=== PATIENT | female | born 1945 | race Caucasian/White ===

== ENCOUNTER 2023-12-30 14:17 | Outpatient (CLI) | payer MEDICARE, MEDICAID | END 2023-12-30 23:59 | disposition home or self-care (01) | LOC: RT 14:17 | PROVIDERS: ATTEND Student in an Organized Health Care Education/Training Program | DX: J45.909 Unspecified asthma, uncomplicated (principal) | CPT/HCPCS: 94010; 94760 ==

== ENCOUNTER 2024-08-09 16:15 | Emergency (ER) | payer MEDICARE, MEDICAID ==
[~2024-08-09] VITALS: Ht 160 cm; Wt 57.6 kg
--- NOTE | 2024-08-09 16:45 | RADIOLOGY REPORT ---
CHEST RADIOGRAPH Indication: FALL/CP Technique: Single frontal view of the chest was obtained COMPARISON: None FINDINGS: Lines and Tubes: None Lungs: Clear Pleura: No effusion. No pneumothorax. Cardiomediastinal contours: Unremarkable Bones: Unremarkable IMPRESSION: 1. No acute disease.
--- NOTE | 2024-08-09 20:22 | Physician Documentation ---
History of Present Illness ~ Chief Complaint: Mechanical Fall Stated Complaint: FALL RIB PAIN NO THINNERS Time Seen by MD: 20:13 HPI Patient presents to the emergency room with sternal chest pain that began as she woke up earlier this morning from what she describes as a vivid dream and landing on the corner of her dresser right in her chest. She denies any head strike. She also bumped her left forearm and has some bruising there but full range of motion. She has taken nothing for the pain Tetanus within 5 Years?: Yes Medication Reconciliation Allergies: Coded Allergies: No Known Allergies (Unverified , 08/09/24) Review of Systems ROS All review of systems negative except as per HPI Physical Exam Vital Signs: Temperature: 99.0, Source: Temporal, Heart Rate: 78, Respiratory Rate: 16, BP: 181/78, Pulse Oximetry: 99, Weight: 57.600 Oxygen Flow Rate: 0 Physical Exam General: Patient is awake, alert, oriented x4 in no acute distress Head: Normocephalic and atraumatic. Eyes: Conjunctival normal. EOMI. PERRL. ENT: Mucous membranes moist. Neck: Supple, trachea is midline. Chest: Clear to auscultation bilaterally without rales, rhonchi, or wheezes. There is no accessory muscle use or retractions. Tenderness to palpation to central chest but no ecchymosis or breaks in skin Cardiac: RRR without murmurs, gallops, or rubs. Abd: Soft, nondistended, nontender, with normoactive bowel sounds. No guarding, rebound, or rigidity. Progress Results/Orders Results/Orders Completed Orders - RUSSELL RAMIREZ MD Electrocardiogram (08/09/24 20:27) Ibuprofen Tablet (Motrin Tablet) (08/09/24 20:30) Acetaminophen 325mg Tablet (Tylenol Tabl (08/09/24 20:30) Medications Received in ER Medications (Trade) Dose Ordered Sig/Kaia Route PRN Reason Start Time Stop Time Status Last Admin Dose Admin (Motrin tablet) 400 mg ONCE ONCE PO 08/09/24 20:30 08/09/24 20:31 DC 08/09/24 20:37 400 MG (Tylenol tablet) 650 mg ONCE ONCE PO 08/09/24 20:30 08/09/24 20:31 DC 08/09/24 20:36 650 MG Vital Signs 08/09/24 08/09/24 08/09/24 16:18 18:50 19:40 Temp 99.0 Pulse 105 78 Resp 17 16 B/P (MAP) 184/93 181/78 (112) Pulse Ox 99 99 O2 Flow Rate 0 EKG/XRAY/CT/US/VASC/MRI EKG : Additional Comment EKG interpreted by myself shows time of 2036, rate 77, sinus rhythm, normal axis, no ST changes Chest X-Ray : Additional Comments Exam: CHEST,SINGLE VIEW CHEST RADIOGRAPH Indication: FALL/CP Technique: Single frontal view of the chest was obtained COMPARISON: None FINDINGS: Lines and Tubes: None Lungs: Clear Pleura: No effusion. No pneumothorax. Cardiomediastinal contours: Unremarkable Bones: Unremarkable IMPRESSION: 1. No acute disease. Medical Decision Making Findings Patient presented to the emergency room with chest pain as per HPI. Differentials include but are not limited to ACS, musculoskeletal system, sternal fracture, pneumothorax. Chest x-ray is reassuring as his physical exam. Patient's pain significantly improved with ibuprofen and Tylenol. He had not feel she requires a CT scan. EKGs reassuring he had not feel her reproducible chest pain is due to acute coronary syndrome. Departure Disposition: 01 HOME / SELF CARE / HOMELESS Impression: Primary Impression: Superficial bruising Condition: Stable Discharge Instructions: Fall Prevention in the Home, Adult, [id number] Referrals: NO PRIMARY CARE PROVIDER (PCP) Signature Scribe Signature: No scribe Attestation: The note accurately reflects work and decisions made by me.Russell Ramirez MD 08/09/24 21:18 RUSSELL RAMIREZ MD Aug 09, 2024 20:22
[2024-08-09] MEDS: acetaminophen 325mg tablet PO ONE (20:36)
[2024-08-09] MEDS: ibuprofen tablet 400 MG TABLET PO ONE (20:37)
--- NOTE | 2024-08-09 20:40 | ELECTROCARDIOGRAPH REPORT ---
[facility] Test Date: 2024-08-09 Test Time: 20:37:23 Pat Name: KILO MOSHERDepartment: [facility] Room: Gender: F Court Specialist: : 1945 Requested By: ALFA COCHRAN Order Number: [id number] Reading MD: Dr. Hero Zacarias Measurements Intervals [place] Rate: 77 P: 68 NV: 212 QRS: 38 QRSD: 96 T: 37 QT: 392 QTc: 444 Interpretive Statements Sinus rhythm Atrial premature complex Borderline prolonged NV interval Electronically Signed On 08-11-2024 6:35:[address] Hero Zacarias Please click the below link to view image of tracing.
[2024-08-09 21:43] VITALS: BP 151/74; PULSE 72; RESP 16; TEMP 98.6; O2SAT 99
== END 2024-08-09 21:45 | disposition home or self-care (01) ==
LOC: ER 16:16
DX: S50.12XA Contusion of left forearm, initial encounter (principal); R07.2 Precordial pain; X58.XXXA Exposure to other specified factors, initial encounter; Y93.89 Activity, other specified; Y92.89 Other specified places as the place of occurrence of the external cause; Y99.8 Other external cause status
CPT/HCPCS: 71045; 93005; 99283

== ENCOUNTER 2024-08-29 19:00 | Emergency (ER) | payer MEDICARE, MEDICAID ==
[~2024-08-29] VITALS: Ht 162.6 cm; Wt 59.1 kg
--- NOTE | 2024-08-29 19:27 | Physician Documentation ---
History of Present Illness ~ Chief Complaint: Anxiety Stated Complaint: GENERAL ILLNESS Time Seen by MD: 19:25 HPI Patient presents to the emergency room with chief complaint of shortness of breaths tingling in fingers and some degree of numbness down her right arm which progressed to her whole-body. Patient states symptoms began this morning when she was making coffee. She has been drank much water felt better and then it returned this evening therefore she came in to be evaluated. No prior instances. No new medications. She states she takes no medications and has no official diagnosis of blood pressure cholesterol or diabetes. She does endorse having a stress test a proximally five years ago which was positive that has followed up with an angiogram which was negative for coronary artery disease. Medication Reconciliation Allergies: Coded Allergies: No Known Allergies (Unverified , 08/29/24) Review of Systems ROS All review of systems negative except as per HPI Physical Exam Vital Signs: Temperature: 98.1, Source: Oral, Heart Rate: 78, Respiratory Rate: 12, BP: 168/98, Pulse Oximetry: 97, Weight: 59.090 Oxygen Flow Rate: 0 General Appearance General: Patient is awake, alert, oriented x4 in no acute distress. Anxious Head: Normocephalic and atraumatic. Eyes: Conjunctival normal. EOMI. PERRL. ENT: Mucous membranes moist. Neck: Supple, trachea is midline. Chest: Clear to auscultation bilaterally without rales, rhonchi, or wheezes. There is no accessory muscle use or retractions. Cardiac: RRR without murmurs, gallops, or rubs. Extremities: Normal strength. Normal range of motion. No deformities or edema. No calf tenderness to palpation Progress Results/Orders Results/Orders Orders - RUSSELL RAMIREZ MD Electrocardiogram (08/29/24 ) Chest,Single View (08/29/24 19:45) Completed Orders - RUSSELL RAMIREZ MD Cbc/Diff (08/29/24 19:32) MG (08/29/24 19:32) Chest,Single View (08/29/24 19:45) BMP (08/29/24 19:32) Urinalysis (08/29/24 19:32) Hs Troponin I W Calculations (08/29/24 19:32) D-Dimer (08/29/24 19:32) TSH (08/29/24 19:36) Vital Signs 08/29/24 08/29/24 19:07 21:04 Temp 98.1 98.1 Pulse 78 80 Resp 12 16 B/P (MAP) 168/98 146/72 (96) Pulse Ox 97 98 O2 Flow Rate 0 0 Laboratory Tests Test 08/29/24 19:42 08/29/24 21:04 White Blood Count 5.6 Red Blood Count 3.98 L Hemoglobin 11.9 L Hematocrit 35.5 Mean Corpuscular Volume 89.3 Mean Corpuscular Hemoglobin 29.8 Mean Corpuscular Hemoglobin Concent 33.4 Red Cell Distribution Width 14.0 Platelet Count 198 Mean Platelet Volume 6.9 L Neutrophils (%) (Auto) 68.2 Lymphocytes (%) (Auto) 20.8 L Monocytes (%) (Auto) 7.2 Eosinophils (%) (Auto) 2.7 Basophils (%) (Auto) 1.1 H Neutrophils # (Auto) 3.8 Lymphocytes # (Auto) 1.2 Monocytes # (Auto) 0.4 Eosinophils # (Auto) 0.1 Basophils # (Auto) 0.1 CBC Comment D-Dimer 0.39 D-Dimer Comment Sodium Level 129 L Potassium Level 4.1 Chloride Level 97 L Carbon Dioxide Level 24.5 Anion Gap 8 Blood Urea Nitrogen 11 Creatinine 0.77 Estimated GFR/1.73 m2 73 BUN/Creatinine Ratio 14.3 Glucose Level 97 Calcium Level 8.7 Magnesium Level 2.0 Troponin I High Sensitivity 10 Albumin 3.7 Thyroid Stimulating Hormone (TSH) 3.05 Chemistry Comments Urine Specimen Description Cln catch midstream Urine Color Yellow Urine Clarity Clear Urine pH 6.0 Urine Specific [place] <=1.005 Urine Protein Negative Urine Glucose (UA) Negative Urine Ketones Trace H Urine Occult Blood Negative Urine Nitrite Negative Urine Bilirubin Negative Urine Urobilinogen 0.2 Urine Leukocyte Esterase Negative Volume Urine Centrifuged 10 ml Urine Comment EKG/XRAY/CT/US/VASC/MRI EKG : Additional Comment EKG interpreted by myself shows time of 191, rate 74, sinus rhythm, normal axis, no ST changes Medical Decision Making Findings Patient presents to the emergency room with subjective shortness of breath and tingling of hands as per HPI. Differentials include but are not limited to panic attack, cardiac arrhythmia, ACS therefore emergent labs ordered. Labs re assuring with negative troponin. No actual chest pain and patient has a heart score of two given her age. Lack of risk factors and patient had a negative angiogram five years ago. Offered admission however patient would prefer to leave. 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 ER precautions discussed. As symptoms have resolved he had not feel she requires investigation into possible pulmonary embolism. Possibility of intermittent arrhythmia however EKG here in troponin is reassuring. I do not feel she requires a 2nd troponin given time of onset. Departure Disposition: HOME / SELF CARE / HOMELESS Impression: Primary Impression: Dyspnea Condition: Improved Discharge Instructions: Shortness of Breath, Adult Additional Instructions: Call your doctor in the morning to arrange for follow up. Return for new or worsening of symptoms Referrals: NO PRIMARY CARE PROVIDER (PCP) Signature Scribe Signature: No scribe Attestation: The note accurately reflects work and decisions made by me.Russell Ramirez MD 08/29/24 22:25 RUSSELL RAMIREZ MD Aug 29, 2024 19:27
[2024-08-29 19:55] LABS: BASOPHILS # (AUTO) 0.1 X10'3 (0-0.2); BASOPHILS % (AUTO) 1.1 % (0-1); EOSINOPHILS # (AUTO) 0.1 X10'3 (0-0.9); EOSINOPHILS % (AUTO) 2.7 % (0-6); HEMATOCRIT 35.5 % (35.0-45.0); HEMOGLOBIN 11.9 g/dl (12.0-16.0); LYMPHOCYTES # (AUTO) 1.2 X10'3 (1.1-4.8); LYMPHOCYTES % (AUTO) 20.8 % (21-51); MEAN CORPUSCULAR HEMOGLOBIN 29.8 PG (27.0-31.0); MEAN CORPUSCULAR HGB CONC 33.4 g/dL (33.0-36.5); MEAN CORPUSCULAR VOLUME 89.3 FL (78-98); MEAN PLATELET VOLUME 6.9 FL (7.4-10.4); MONOCYTES # (AUTO) 0.4 X10'3 (0-0.9); MONOCYTES % (AUTO) 7.2 % (2-12); NEUTROPHILS # (AUTO) 3.8 X10'3 (1.8-7.7); NEUTROPHILS % (AUTO) 68.2 % (42-75); PLATELET COUNT 198 X10'3 (140-440); RED BLOOD COUNT 3.98 X10'6 (4.20-5.60); WHITE BLOOD COUNT 5.6 X10'3 (4.5-11.0)
[2024-08-29 20:10] LABS: D-DIMER 0.39 MG/L FEU (0-0.50)
--- NOTE | 2024-08-29 20:22 | RADIOLOGY REPORT ---
CHEST RADIOGRAPH Indication: CP Technique: Single frontal view of the chest was obtained Comparison: DI CHEST,SINGLE VIEW on DOS: 08/09/24 FINDINGS: Lines and Tubes: None Lungs: No focal consolidation. Pleura: No effusion. No pneumothorax. Cardiomediastinal contours: Unremarkable Bones: No acute osseous abnormality. IMPRESSION: No acute cardiopulmonary disease.
[2024-08-29 20:23] LABS: ALBUMIN 3.7 G/DL (3.4-5.0); ANION GAP 8 (8-16); BLOOD UREA NITROGEN 11 MG/DL (7-18); BUN/CREATININE RATIO 14.3 (10.0-20.0); CALCIUM 8.7 MG/DL (8.5-10.1); CHLORIDE 97 MMOL/L (99-107); CREATININE 0.77 MG/DL (0.40-0.90); GLUCOSE 97 MG/DL (70-104); POTASSIUM 4.1 MMOL/L (3.5-5.1); SODIUM 129 MMOL/L (135-145); THYROID STIMULATING HORMONE 3.05 ulU/ml (0.34-4.50); TOTAL CARBON DIOXIDE 24.5 MMOL/L (24-32); eCRCL 52 ML/MIN; eGFR 73 ML/MIN
[2024-08-29 21:04] VITALS: BP 146/72; PULSE 80; RESP 16; O2SAT 98
[2024-08-29 21:23] LABS: BILIRUBIN,URINE NEGATIVE (Neg); CLARITY,URINE CLEAR (Clear); COLOR,URINE YELLOW (Yellow); GLUCOSE, URINE NEGATIVE (Neg); KETONES,URINE TRACE mg/dl (Neg); LEUKOCYTE ESTERASE ,URINE NEGATIVE (Neg); NITRITES, URINE NEGATIVE (Neg); OCCULT BLOOD,URINE NEGATIVE (Neg); PROTEIN,URINE NEGATIVE (Neg); UROBILINOGEN,URINE 0.2 E.U/dL (0.2-1.0)
[2024-08-29 21:24] LABS: UA COLLECTION TYPE CLN CATCH MIDSTREAM
[2024-08-29 22:35] VITALS: TEMP 98.1
--- NOTE | 2024-08-30 05:15 | ELECTROCARDIOGRAPH REPORT ---
[facility] Test Date: 2024-08-29 Test Time: 19:15:09 Pat Name: KILO MOSHERDepartment: EMERGENCY ROOM Room: Gender: F Center Director: ISIAH : 1945 Requested By: ALFA COCHRAN Order Number: [id number] Reading MD: Measurements Intervals [place] Rate: 74 P: 73 [place]: 203 QRS: 61 QRSD: 101 T: 65 QT: 406 QTc: 451 Interpretive Statements Sinus rhythm Multiple premature complexes, vent & supraven Minimal ST depression, lateral leads Please click the below link to view image of tracing.
== END 2024-08-29 22:37 | disposition home or self-care (01) ==
LOC: ER 19:01
DX: R06.02 Shortness of breath (principal)
CPT/HCPCS: 36415; 71045; 80048; 81003; 83735; 84443; 84484; 85025; 85379; 93005; 99285

== ENCOUNTER 2024-12-13 15:41 | Emergency (ER) | payer MEDICARE, MEDICAID ==
[~2024-12-13] VITALS: Ht 160 cm; Wt 50.9 kg
[~2024-12-13 15:41] MED LIST: ALPR0.252 PO; ATOR20TA66 PO; NO HOME MEDS
[2024-12-13 15:53] VITALS: TEMP 97.1
--- NOTE | 2024-12-13 16:24 | Physician Documentation ---
History of Present Illness ~ Chief Complaint: Anxiety Stated Complaint: ANXIETY Time Seen by MD: 15:50 HPI Patient is seen today with complaints of panic attack today. Patient states she was up all night doing deep breathing exercises trying to control her anxiety but was unable to. She has had severe anxiety over the last 2-4 months and has gotten a prescription of Xanax 0.25 mg 1/2-1 tablet by mouth as needed for anxiety that has lasted for the last couple of months. Patient unfortunately has not yet followed up with her primary care provider. Patient has no other concern or complaint at this time. Patient denies any suicidal or homicidal ideation. Medication Reconciliation Allergies: Coded Allergies: No Known Allergies (Unverified , 10/24/24) Scheduled Atorvastatin Calcium (Atorvastatin Calcium), 80 MG PO DAILY Scheduled PRN Alprazolam (Xanax), 1 TAB PO QDAY PRN PRN for anxiety Miscellaneous Medications Home Med List (No Home Medications), (Reported) Past Medical History Patient History: FH: Parkinson's disease (brother parkinson) FH: atrial fibrillation (brother Atrial fibrillation) FH: cancer (mom has intenstinal cancer) Heart valve abnormality (father had heart valve replacement) Review of Systems Constitutional: Denies: chills, fever, weakness Eyes: Denies: pain, blurred vision ENT: Denies: ear pain, nose pain, throat pain, mouth pain Respiratory: Denies: cough, shortness of breath Cardiovascular: Denies: chest pain, palpitations Gastrointestinal: Denies: abdominal pain, nausea, vomiting Genitourinary: Denies: burning, dysuria Female Genitalia: Denies: vaginal discharge, pelvic pain Neurological: Denies: headache, dizziness Musculoskeletal: Denies: pain, swelling Integumentary: Denies: rash, lesions Allergic/Immunologic: Denies: hives, itching Hematologic/Lymphatic: Denies: no symptoms reported Psychiatric: Denies: depression, anxiety Physical Exam Vital Signs: Temperature: 97.1, Source: Temporal, Heart Rate: 87, Respiratory Rate: 14, BP: 163/73, Pulse Oximetry: 96, Weight: 50.910 Oxygen Flow Rate: 0 Physical Exam General: Awake and Alert, no acute distress. Patient appears extremely anxious. But is able to calm down and speak understandably. HEENT: Conjunctiva pink, Sclera clear, Mucus Membranes moist. Neck: Supple without masses and tenderness. Resp: Unlabored. Lungs clear to auscultation bilaterally. Heart: Regular Rate and rhythm, normal S1 and S2 without murmur, rub or gallop. Abdomen: Soft and non tender no organomegaly Extremities: No cyanosis,clubbing or edema. Skin: Warm and Dry. Progress Results/Orders Results/Orders Completed Orders - DANISH HINTON Alprazolam Tablet (Xanax Tablet) (12/13/24 15:52) Vital Signs 12/13/24 15:53 Temp 97.1 Pulse 87 Resp 14 B/P (MAP) 163/73 Pulse Ox 96 O2 Flow Rate 0 Medical Decision Making Findings Patient is seen today with complaints of panic attack today. Patient states she was up all night doing deep breathing exercises trying to control her anxiety but was unable to. She has had severe anxiety over the last 2-4 months and has gotten a prescription of Xanax 0.25 mg 1/2-1 tablet by mouth as needed for anxiety that has lasted for the last couple of months. Patient unfortunately has not yet followed up with her primary care provider. Patient has no other concern or complaint at this time. Patient was given 0.25 mg Xanax tablet by mouth in the ED today along with prescription for Xanax sent home to patient's pharmacy to be taken as prescribed. I highly advised patient establish care with primary care for further eval and follow up and eval by Psychiatry. Patient will return to ED with any worsening, concerning or changing symptoms. Departure Disposition: 01 HOME / SELF CARE / HOMELESS Impression: Primary Impression: Anxiety attack Additional Impression: Panic attack Condition: Improved Discharge Instructions: Panic Attack Additional Instructions: Patient was given 0.25 mg Xanax tablet by mouth in the ED today along with prescription for Xanax sent home to patient's pharmacy to be taken as prescribed. I highly advised patient establish care with primary care for further eval and follow up and eval by Psychiatry. Patient will return to ED with any worsening, concerning or changing symptoms. Referrals: NO PRIMARY CARE PROVIDER (PCP) Prescriptions Alprazolam (Xanax) 0.25 Mg Tablet 1 TAB PO Q12H PRN PRN for anxiety for 7 Days, #14 TAB 0 Refills Prov: DANISH HINTON 12/13/24 Signature Scribe Signature: No scribe Attestation: No scribe HINTON,DANISH R [facility] Dec 13, 2024 16:24
[2024-12-13] MEDS ORDERED: ALPR0.252 PO (16:26)
[2024-12-13] MEDS: ALPRAZolam 0.25mg tablet PO STA (16:50)
[2024-12-13 16:59] VITALS: BP 141/90; PULSE 85; RESP 16; O2SAT 98
== END 2024-12-13 17:01 | disposition home or self-care (01) ==
LOC: ER 15:41
DX: F41.0 Panic disorder [episodic paroxysmal anxiety] (principal); Z79.899 Other long term (current) drug therapy
CPT/HCPCS: 99283

== ENCOUNTER 2025-01-06 08:53 | Emergency (ER) | payer MEDICARE, MEDICAID ==
[~2025-01-06] VITALS: Ht 160 cm; Wt 51.5 kg
[2025-01-06 08:56] VITALS: TEMP 96.5
--- NOTE | 2025-01-06 09:21 | Physician Documentation ---
History of Present Illness ~ Chief Complaint: Anxiety Stated Complaint: ANXIETY Time Seen by MD: 09:03 Source: patient Mode of Arrival: EMS Exam Limitations: no limitations HPI 79-year-old female suffering from anxiety and panic attack this morning feeling like she could not breathe so she arrived via EMS vital signs stable. Patient was seen last night and given Ativan. Patient took Ativan prior to going to bed last night as well as a 50 mg dose of hydroxyzine. Patient woke up feeling panicked and unable to take a deep breath. Patient does have her next primary care appointment on January 18, 2025 she currently has also started taking Lexapro daily. Patient states she has never truly suffered from anxiety except for the last 3 months but is unaware of any triggering events to cause severe anxiety. Medication Reconciliation Allergies: Coded Allergies: No Known Allergies (Unverified , 01/06/25) Scheduled Atorvastatin Calcium (Atorvastatin Calcium), 80 MG PO DAILY Scheduled PRN Alprazolam (Xanax), 1 TAB PO QDAY PRN PRN for anxiety Alprazolam (Xanax), 1 TAB PO Q12H PRN PRN for anxiety Miscellaneous Medications Home Med List (No Home Medications), (Reported) Past Medical History Past Medical History: *PSYCH*, Anxiety Past Surgical History: noncontributory Patient History: FH: Parkinson's disease (brother parkinson) FH: atrial fibrillation (brother Atrial fibrillation) FH: cancer (mom has intenstinal cancer) Heart valve abnormality (father had heart valve replacement) Drug Use: none Lives In: Home Occupation: retired Review of Systems All Other Systems at this time: Reviewed and Negative Psychiatric: Reports: see HPI Physical Exam Vital Signs: RN Vital Signs have been reviewed: Yes, Temperature: 96.5, Source: Oral, Heart Rate: 90, Respiratory Rate: 16, BP: 159/81, Pulse Oximetry: 99, Weight: 51.500 Oxygen Flow Rate: 0 Physical Exam General: Alert, anxious mildly in distress due to anxiety HEENT: PERRL, EOMI, no injection, moist mucous membranes. Neck: Full range of motion. Respiratory: Lungs clear, no respiratory distress. Chest: No accessory muscle use. Cardiovascular: Regular rate and rhythm, no murmurs. Extremities: Normal range of motion, no deformity. Neurologic: Oriented x4. Psychiatric: Anxious Skin: Normal color, warm and dry. No edema, no ecchymosis. Progress Results/Orders Results/Orders Completed Orders - JENNIFER HO NP Alprazolam Tablet (Xanax Tablet) (01/06/25 09:20) Medications Received in ER Medications (Trade) Dose Ordered Sig/Kaia Route PRN Reason Start Time Stop Time Status Last Admin Dose Admin (Xanax tablet) 0.5 mg ONCE ONCE PO 01/06/25 09:20 01/06/25 09:21 DC 01/06/25 09:40 0.5 MG Vital Signs 01/06/25 01/06/25 08:56 09:09 Temp 96.5 Pulse 82 90 Resp 16 16 B/P (MAP) 173/65 159/81 (107) Pulse Ox 99 99 O2 Flow Rate 0 0 Medical Decision Making Additional information obtaine: old records Findings Patient has known history of anxiety panic attacks just recently started on Lexapro and does have primary care involvement. Patient was seen last night old records reviewed. Patient took Ativan last night and currently has prescription of Xanax. Patient is unaware if this is just a another panic attack or if it was from Ativan. His Xanax was prescribed here no medications were prescribed upon discharge. Patient is to maintain appointments with primary care. Suicidal homicidal ideations Differential Dx:Considerations: Include: Anxiety Departure Time of Disposition: 09:54 Disposition: 01 HOME / SELF CARE / HOMELESS Impression: Primary Impression: Panic attack Additional Impression: Anxiety Condition: Stable Discharge Instructions: Panic Attack Additional Instructions: Call and see if you are able to make a sooner primary care provider appointment and maintain your current appointment on the 12th. Take current medications as you have done well with Xanax and hydroxyzine in rest and stay well hydrated Referrals: NO PRIMARY CARE PROVIDER (PCP) Education Educated: Patient Educated regarding: diagnosis, treatment, need for follow up Signature Scribe Signature: No scribe Attestation: The note accurately reflects work and decisions made by me.Jennifer Ho - TUBE CUTTER OPERATOR 01/06/25 09:21 JENNIFER HO NP Jan 06, 2025 09:21
[2025-01-06] MEDS: ALPRAZolam 0.25mg tablet PO ONE (09:40)
[2025-01-06 10:02] VITALS: BP 155/74; PULSE 72; RESP 16; O2SAT 98
== END 2025-01-06 10:00 | disposition home or self-care (01) ==
LOC: ER 08:54
DX: F41.0 Panic disorder [episodic paroxysmal anxiety] (principal); Z79.899 Other long term (current) drug therapy
CPT/HCPCS: 99283

== ENCOUNTER 2025-01-12 07:50 | Inpatient (IN) | payer MEDICARE, MEDICAID ==
[~2025-01-12] VITALS: Ht 162.6 cm; Wt 50.0 kg
--- NOTE | 2025-01-12 08:30 | Physician Documentation ---
Addendum CHIEF COMPLAINT/HPI: The patient is a 79-year-old female with a history of anxiety/depression and dyslipidemia who presents with dizziness. She reports that she was not able to walk I am called 911. She also reports that she was here last night and received Ativan, hydroxyzine and tramadol. She has been suffering from anxiety since October and has had blood work done at [facility] by her PCP, Dr. Burnham. She has associated abdominal pain. She states she was seen at [facility] for the same pain a proximally one-week ago where CT scans and ultrasounds were performed with no findings. She lives by herself in [facility] for the past two years. Prior to that she lived with her brother who has Parkinson's disease. At home, she has medications which include hydroxyzine, propranolol, Xanax, Ativan and Lexapro (she reports that she stopped taking Lexapro as it did not agree with her). REVIEW OF SYSTEMS: Constitutional: Denies chills, fatigue, fever, weight gain or weight loss. HEENT: Denies hearing loss, sinus pressure or visual changes. Respiratory: Denies cough, shortness of breath or wheezing. Cardiovascular: Denies chest pain, pain while walking (claudication), edema or palpitations. Gastrointestinal: Denies abdominal pain, blood in stool, constipation, diarrhea, heartburn, loss of appetite, nausea or vomiting. Genitourinary: Denies painful urination (dysuria), excessive amount of urine (polyuria) or urinary frequency. Metabolic/Endocrine: Denies cold intolerance, heat intolerance, excessive thirst (polydipsia) or excessive hunger (polyphagia). Neurological: Denies dizziness, extremity numbness, extremity weakness, headaches, seizures or tremors. Psychiatric: Suffers from anxiety and depression. Integumentary: Denies breast discharge, breast lump, hives, mole change(s), rash or skin lesion. Musculoskeletal: Denies back pain, joint pain, joint swelling or neck pain. Hematologic: Denies easily bleeding, easily bruises, lymphedema or issues with blood clots. Immunologic: Denies food allergies or seasonal allergies. PHYSICAL EXAMINATION: Vitals and nursing note reviewed. Constitutional: General: Patient is awake, alert, oriented x 4 in no acute distress and well appearing. Speech is clear and lucid. Appearance: Normal appearance. Patient is not ill-appearing, toxic-appearing or diaphoretic. HENT: Head: Normocephalic and atraumatic. Mouth: Mucous membranes are moist. Pharynx: Oropharynx is clear. Eyes: General: No scleral icterus. Extraocular Movements: Extraocular movements intact. Pupils: Pupils are equal, round, and reactive to light. Neck: Supple, no Kernig or Brudzinski sign. Cardiovascular: Rate and Rhythm: Normal rate and regular rhythm. Heart sounds: No murmur heard. Pulmonary: Effort: No respiratory distress. Breath sounds: No wheezing, rhonchi or rales. Abdominal: General: There is no distension. Palpations: There is no fluid wave, hepatomegaly or mass. Tenderness: There is no abdominal tenderness. There is no guarding. Musculoskeletal: General: No swelling or deformity. Skin: Coloration: Skin is not jaundiced. Findings: No erythema or rash. Neurological examination: GCS: E-4, V-5, M-6 Motor strength: [motor strength] Sensory: [sensory] information security systems instructor: II - XII intact Equilibratory intact MEDICAL DECISION MAKING: This 71-year-old female comes here lightheaded/dizzy. She does live by herself. She does take lots of sedative/hypnotics, including hydroxyzine, lorazepam, Xanax and had tramadol last night during her visit here. She is also hyponatremic. My concern is that she is high-risk for a fall. I am going to get her admitted. Departure Disposition: ADMITTED INPATIENT Admitted to Inpatient Unit: to hospitalist Impression: Primary Impression: Hyponatremia Additional Impressions: Dizzy Anxiety Risk for falls Condition: ROSENDO Aguilar MD Jan 12, 2025 08:30
[2025-01-12] MEDS: normal saline 1000ml 1,000 ML IV ONE (09:18)
[2025-01-12 09:37] LABS: MEAN PLATELET VOLUME 6.4 FL (7.4-10.4); RED CELL DISTRIBUTION WIDTH 14.3 % (11.5-14.5)
[2025-01-12 09:46] LABS: INR 1.0 INR
[2025-01-12 09:57] LABS: CREATININE 0.69 MG/DL (0.40-0.90); TOTAL CARBON DIOXIDE 26.2 MMOL/L (24-32); eCRCL 53 ML/MIN; eGFR 82 ML/MIN
--- NOTE | 2025-01-12 12:41 | RADIOLOGY REPORT ---
EXAM: CT CT HEAD INDICATION: Dizzy TECHNIQUE: CT of the head without intravenous contrast. Radiation Dose : 1. Head: CT Dose: CTDI volume is 46.0 mGy. Dose-length product is 846.1 mGy*cm The dose indicators for CT are the volume Computed Tomography (CT) Dose Index (CTDIvol) and the Dose Length Product (DLP), and are measured in units of mGy and mGy-cm, respectively. These indicators are not patient dose, but values generated from the CT scanner acquisition factors. The report includes radiation exposure data for exposures received during this examination. COMPARISON: [facility] SCAN on DOS: 10/25/24 FINDINGS: There is no evidence of acute intracranial hemorrhage, extra-axial collection, mass effect, midline shift, herniation or hydrocephalus. The ventricles, sulci and cisterns are age appropriate. The sanchez-white differentiation is intact. The visualized paranasal sinuses and mastoid air cells are clear. The surrounding soft tissues and osseous structures are unremarkable. IMPRESSION: No acute intracranial abnormality.
[2025-01-12] MEDS ORDERED: magnesium hydroxide 30ml (MOM) UD suspension PO PRN (13:05)
[2025-01-12] MEDS ORDERED: mag hydrox/Alum hydrox/simeth 30ml oral suspension PO PRN (13:05)
[2025-01-12] MEDS ORDERED: potassium Cl 40MEQ/1/2NS 520ml 520 ML IV PRN (13:05)
[2025-01-12] MEDS ORDERED: ondansetron/PF 4mg/2ml inj IV PRN (13:05)
[2025-01-12] MEDS ORDERED: potassium Cl 20 mEq SR tablet PO PRN ×2 (13:05)
[2025-01-12] MEDS ORDERED: HYDROcodone/acetaminophen 5mg/325mg tablet PO PRN (13:05)
[2025-01-12] MEDS ORDERED: HYDROcodone/acetaminophen 10/325mg tab PO PRN (13:05)
[2025-01-12] MEDS ORDERED: magnesium sulf-water 4G/100mL 100 ML IV PRN (13:05)
[2025-01-12] MEDS ORDERED: magnesium Cl slow-release 64mg tablet PO PRN (13:05)
[2025-01-12] MEDS ORDERED: magnesium sulf-water 2g/50mL 50 ML IV PRN (13:05)
[2025-01-12 14:05] LABS: APTT 28 SECONDS (22-32); INR 1.0 INR
[2025-01-12 14:09] LABS: OSMOLALITY 270 MOSM/K (280-300)
[2025-01-12 14:14] LABS: CREATININE 0.60 MG/DL (0.40-0.90); PHOSPHORUS 3.7 MG/DL (2.3-4.5); PRO BRAIN NATRIURETIC PEPTIDE 336 PG/ML (0-450); TOTAL CARBON DIOXIDE 25.1 MMOL/L (24-32); eCRCL 61 ML/MIN; eGFR > 90 ML/MIN
--- NOTE | 2025-01-12 16:56 | HISTORY AND PHYSICAL-Residence ---
History & Physical Providers to Resident Creating Document: DEMETRIO GARSIA RES ~ History of Present Illness Reason for Admit\Complaint: Dizziness History of Present Illness 79-year-old female with history of anxiety and panic attack came to the ED with complaints of dizziness. She states that today morning, she started feeling dizzy when she woke up and called 911. She denies any falls or loss of consciousness. Yesterday she came to the ED for panic attack and was given Ativan, hydroxyzine and tramadol due to associated abdominal pain. She states that she started having anxiety and panic attacks since October and has a therapist who prescribed her Xanax 0.25 mg at home. She reports having chest pain, palpitations, shortness of breath during the panic episodes. She has propranolol, Xanax, Ativan, hydroxyzine and Lexapro at home which she uses for her anxiety. She stopped taking Lexapro as she has a bad reaction, she cannot breathe and has diaphoresis after taking Lexapro. She reports having intermittent burning and cramping type of epigastric abdominal pain, especially when she eats, which started 3 months ago when she started having panic attacks. She has lost 19 lb in past 3 months, she has decreased appetite due to the pain and did not eat yesterday and today. She states that her abdominal pain subsides when she lies down and used to subside with the Xanax but not anymore. She does not take any [id number] pain meds and she does not drink alcohol. She has been taking Pepsid for the past 1- 1/2 week as per recommendation of her PCP but she states that it has not been helping her. She has been intermittently constipated. She went to [facility] 1-1/2 week ago for evaluation of abdominal pain where CT scan and ultrasound were performed with no findings. She denies melena, hematochezia, nausea, vomiting, hematemesis, burning micturition, fever, chills. Her PCP is at [facility], Dr. Burnham She sees a therapist for anxiety and panic attacks whom she will be seeing on Thursday She lives alone at home She can ambulate independently, but is a fall risk currently due to dizziness Allergies: Coded Allergies: No Known Allergies (Unverified , 01/06/25) Home Medications Home Medications Active Xanax (Alprazolam) 0.25 Mg Tablet 1 Tab PO Q12H PRN PRN 7 Days Atorvastatin Calcium 20 Mg Tablet 80 Mg PO DAILY 30 Days Xanax (Alprazolam) 0.25 Mg Tablet 1 Tab PO QDAY PRN PRN Reported No Home Medications (Home Med List) Each Past Medical History Past Medical History Anxiety Panic attacks Dyslipidemia Past Surgical History Surgical History Comment No significant surgical history Family History Family History: FH: Parkinson's disease (brother parkinson) FH: atrial fibrillation (brother Atrial fibrillation) FH: cancer (mom has intenstinal cancer) Heart valve abnormality (father had heart valve replacement) Past Social History Social History Comment She is not an active smoker, she smoked for 3 years around 61 years ago She drinks alcohol occasionally She denies recreational drug use She lives alone at home She can ambulate independently, but is a fall risk currently due to dizziness Her PCP is at [facility], Dr. Burnham She sees a therapist for anxiety and panic attacks whom she will be seeing on Thursday Drug Use: None Lives In: Home Occupation: retired ROS ROS Constitutional: Reports dizziness, No fever, chills, weight gain or loss Eyes: No pain, erythema, discharge, blurring of vision ENT: No sore throat, epistaxis, tinnitus Cardiovascular:No chest pain, palpitations, syncope, lower extremity edema, paroxysmal nocturnal dyspnea Respiratory: No Shortness of breath and cough, No hemoptysis. Gastrointestinal: Reports Abdominal pain, No vomiting,nausea,constipation,diarrhea. Normal appetite. No hematemesis or melena. Musculoskeletal: No Swelling, pain in bilateral lower legs. Integumentary: No change in skin, hair, nails. No swelling, bruising, abrasions Neurologic: No weakness,No headache, neck pain, numbness or tingling of the extremities, Psychiatric: Reports anxiety and panic attacks, No delusions, depression, loss of interest in normal activity or change in sleep pattern, hallucinations, suicidal ideations Endocrine: No fatigue, no weakness. polydipsia, polyuria, change in appetite, heat or cold intolerance, sweating, dry skin Hematological: No bleeding, petechiae, bruising Allergies: No asthma or urticaria Exam Vitals: Vital Signs Date Time Temp Pulse Resp B/P (MAP) Pulse Ox O2 Delivery O2 Flow Rate FiO2 01/12/25 13:42 65 01/12/25 10:41 97.6 17 145/69 (94) 98 General: Awake , alert, and oriented x4, resting comfortably in the bed, in no acute distress HEENT: Atraumatic, normocephalic, EOMI, anicteric sclera ; pink conjunctiva, moist mucous membranes Neck: Trachea midline. Supple, full range of motion, no JVD Cardiac: Regular rhythm, regular rate with no murmurs all over the precordium. Respiratory: Equal breath sounds bilaterally, no tachypnea, no wheezing ,rub or rales, Chest wall is symmetric and without deformity. Gastrointestinal: Abdomen symmetric, non-distended, soft, non-tender, normal bowel sounds, no hepatosplenomegaly Musculoskeletal: No pedal edema, no cyanosis Neurological: Speech is clear, alert, and oriented x 4. No motor or sensory deficit, deep tendon reflexes normal, cerebellar intact. Cranial nerves II-XII intact. Skin: Warm and dry Diagnostic Data Last Recorded Lab Results: 01/12/25 0914 01/12/25 1334 Diagnostic Data: Laboratory Tests Test 01/12/25 13:34 Prothrombin Time 10.7 SECONDS (9.0-12.0) INR International Normalized Ratio 1.0 INR Activated Partial Thromboplast Time 28 SECONDS (22-32) Coagulation Comments Advance Care Planning Advanced Care plannin - 30 Minutes (Full code) Additional Plan Dizziness, most probably vasovagal Euvolemic hypoosmolar Hyponatremia Sodium is 128 on admission, received 1 L NS bolus in the ED, repeat sodium is 131 Patient shows no other neurological symptoms Head CT shows no intracranial abnormality Previous echo in October 2024 shows LVEF of 55-60%, RVSP 26 mmHg with trace mitral and tricuspid regurgitation. Her stress test in October 2024 is negative. Her previous chest x-ray in October 2024 shows no acute cardiopulmonary process TSH is normal Glucose is normal, she is not a diabetic Plan: Follow up orthostatic vitals Follow up urinalysis Follow up drug screen Serum osmolality is mildly low - 270 Follow up urine osmolality and urine sodium Started NS at 75 mL/hour Fall precautions in place Abdominal pain, most probably gastritis due to anxiety Other differential diagnosis are gastric ulcer, duodenal ulcer, GERD Lipase is normal She went to [facility] 1-1/2 week ago for evaluation of abdominal pain where CT scan and ultrasound were performed with no findings. Hemoglobin is normal-12.2 On IV pantoprazole 40 mg b.i.d. Anxiety Panic attacks She uses Xanax 0.25 mg at home, prescribed by her therapist She also has propranolol, hydroxyzine, Ativan at home which she uses as needed Started on Ativan 1 mg q.6h p.r.n. for anxiety and hydroxyzine 10 mg HS Dyslipidemia Follow up lipid panel Hypertension She is not a known hypertensive, She does not use any antihypertensives at home Blood pressure is on the higher side-144/81, one time dose of amlodipine 5 mg was given in the ED It could be due to anxiety Started on hydroxyzine 10 mg h.s. We will monitor blood pressure in the a.m. and plan to start antihypertensives if necessary Code status: Full code DVT prophylaxis: Heparin subQ, SCD GI prophylaxis: IV pantoprazole 40 mg b.i.d. Pain management: [place] 5 mg/10 mg p.r.n. Diet/nutrition: Regular diet Prognosis: Guarded Disposition: Continue medical management, follow up urine osmolality and urine sodium, monitor blood pressure, PT eval and DC plan Resident MD attestation: The patient note has been reviewed and supervised by senior residents PGY-2/ PGY-3. Patient was seen, examined and discussed with attending physician, Dr. Anastasiya Garsia MD Internal Medicine resident, PGY-1 Date of Service: Jan 12, 2025 Billing Provider: EMELY ROBERTS MD Common Visit Codes: [id number] INP/OBS CARE (HIGH) Secondary Visit Codes: [id number] CARE PLAN 30 MINUTES DEMETRIO GARSIA, RES Jan 12, 2025 16:56 EMELY ROBERTS MD Jan 18, 2025 07:33
[2025-01-12] MEDS: normal saline 1000ml 1,000 ML IV SCH (17:09)
[2025-01-12 19:20] VITALS: BP 133/81; PULSE 66; RESP 16; TEMP 98; O2SAT 98
[2025-01-12 20:00] VITALS: BP 133/81; PULSE 66; RESP 16; O2SAT 98
[2025-01-12] MEDS: heparin, porcine 5000 units/ml vial SQ SCH (20:00)
[2025-01-12] MEDS: K and/or MAG REPLACEMENT MC SCH (20:00)
[2025-01-12] MEDS: docusate sod 100mg capsule PO SCH (20:00)
[2025-01-12] MEDS: polyethylene glycol 3350 17gm powd pack PO SCH (20:36)
[2025-01-12 22:00] VITALS: BP 106/43; PULSE 64; RESP 12; TEMP 97.3; O2SAT 96
[2025-01-13] VITALS (7 sets, daily range): BP systolic 102–140; BP diastolic 52–78; PULSE 60–74; RESP 12–17; TEMP 97.3–98.4; O2SAT 96–99
[2025-01-13] MEDS ORDERED: HYDR-3686 PO (00:29)
[2025-01-13 07:02] LABS: MEAN PLATELET VOLUME 6.4 FL (7.4-10.4); RED CELL DISTRIBUTION WIDTH 14.3 % (11.5-14.5)
[2025-01-13 07:35] LABS: CHOL/HDL RATIO 3.8 (0.00-4.99); CREATININE 0.63 MG/DL (0.40-0.90); LDL CHOLESTEROL 142 MG/DL (50-100); TOTAL CARBON DIOXIDE 23.6 MMOL/L (24-32); eCRCL 58 ML/MIN; eGFR > 90 ML/MIN
[2025-01-13] MEDS: pantoprazole 40mg Tablet.DR PO SCH (08:47)
[2025-01-13 15:44] LABS: LEUKOCYTE ESTERASE ,URINE NEGATIVE (Neg); NITRITES, URINE NEGATIVE (Neg); OCCULT BLOOD,URINE TRACE-INTACT (Neg)
[2025-01-13 15:45] LABS: CREATININE,URINE RANDOM 61.0 MG/DL
[2025-01-13 15:46] LABS: UA COLLECTION TYPE NON-SPECIFIED
[2025-01-13 15:55] LABS: MUCUS STRANDS NONE SEEN /LPF (Neg); SQUAMOUS EPITHELIAL CELL,UR FEW /LPF (FEW)
[2025-01-13 15:56] LABS: URINE AMPHETAMINE SCREEN NEGATIVE (Neg); URINE BARBITUATE SCREEN NEGATIVE (Neg); URINE BENZODIAZEPINES SCREEN NEGATIVE (Neg); URINE CANNABINOID SCREEN NEGATIVE (Neg); URINE COCAINE SCREEN NEGATIVE (Neg); URINE METHADONE SCREEN NEGATIVE (Neg); URINE OPIATE SCREEN NEGATIVE (Neg); URINE PHENCYCLIDINE SCREEN NEGATIVE (Neg)
[2025-01-13 15:59] LABS: OSMOLALITY UA 460.0 MOSM/K (50-1400)
--- NOTE | 2025-01-13 16:08 | PROGRESS NOTE- Residence ---
Progress Note - Resident Providers to CC Resident Creating Document: DEISI ROWE RES ~ Antibiotic Timeout Antibiotic Ordered?: No Subjective Patient shows severe anxiety concerning about that the dosage of hydroxyzine she used to take is higher than the amount she is getting here now, for which she was explained about the medications tolerance and holidays are working to respond Objective Vital Signs Date Time Temp Pulse Resp B/P (MAP) Pulse Ox O2 Delivery O2 Flow Rate FiO2 01/13/25 10:00 98.4 69 16 105/52 (69) 96 Room Air Result Diagram: 01/13/25 0632 01/13/25 0632 Vitals were stable at the moment with temp 97.3 F, MN 62/minute, RR 14/minute, BP 130/60 mm Hg, pulse oximetry 98% on room air. On examination, General: Well alert, well oriented, not confused, not agitated, not in acute distress, well cooperated during the physical. HEENT: Conjunctive are pink, sclerae clear, no icterus, pupil is equal in both sides, reactive to light, no ear discharge, no pharyngeal erythema or an edema, mouth and lips are moist. Neck: Supple, no JVD, no lymphadenopathy and thyromegaly. Lungs:Equal air entry on both lungs, no additional sounds Heart: S1-S2 regular sinus rhythm and, regular rate, no gallops, no rubs, no murmurs Abdomen: No visible peristalsis, Bowel sounds present on auscultation, soft, nontender, no guarding, no rigidity Extremities: No obvious deformities, no pitting edema bilaterally, capillary refill intact, able to wiggle toes both sides, peripheral pulsations are intact on both sides COMMERCIAL CREDIT SPECIALIST: No focal neurological deficits, no motor and sensory weakness in all 4 extremities, could move all 4 extremities Musculoskeletal: No joint swelling, deformities, inflammations, and no scoliosis and back tenderness Skin: No active skin lesions and rashes Coagulation Studies Laboratory Tests Test 01/12/25 13:34 Prothrombin Time 10.7 SECONDS (9.0-12.0) INR International Normalized Ratio 1.0 INR Activated Partial Thromboplast Time 28 SECONDS (22-32) Coagulation Comments Assessment Assessment A 79-year-old female with history of anxiety and panic attack came to the ED with complaints of dizziness. She states that today morning, she started feeling dizzy when she woke up and called 911 who was found to have hypotnatremia and was admitted to the hospital for the electrolytes correction in the setting of higher chances to have ground level fall. Plan Plan # Dizziness, most probably vasovagal # Euvolemic hypoosmolar Hyponatremia Improving sodium gradually Patient shows no other neurological symptoms Head CT shows no intracranial abnormality Previous echo in October 2024 shows LVEF of 55-60%, RVSP 26 mmHg with trace mitral and tricuspid regurgitation. Her stress test in October 2024 is negative. Her previous chest x-ray in October 2024 shows no acute cardiopulmonary process TSH is normal Glucose is normal, she is not a diabetic Plan: Pending orthostatic vitals Pending urinalysis and urine lytes Pending drug screen Serum osmolality is mildly low - 270 Started NS at 75 mL/hour Fall precautions in place # Abdominal pain, most probably gastritis due to anxiety # Other differential diagnosis are gastric ulcer, duodenal ulcer, GERD Lipase is normal She went to [facility] 1-1/2 week ago for evaluation of abdominal pain where CT scan and ultrasound were performed with no findings. Hemoglobin is normal-12.2 Switch to P.o. pantoprazole 40 mg b.i.d. and consider taper off # Anxiety # Panic attacks She uses Xanax 0.25 mg at home, prescribed by her therapist She also has propranolol, hydroxyzine, Ativan at home which she uses as needed continue on Ativan 1 mg q.6h p.r.n. for anxiety and hydroxyzine 10 mg HS # Dyslipidemia LDL 142 We will consult the patient to initiate statin medication for primary prevention of ACS and CVA in the future ASCVD could not calculate for patient at 79 years old # Hypertension She is not a known hypertensive, She does not use any antihypertensives at home Blood pressure is on the higher side-144/81, one time dose of amlodipine 5 mg was given in the ED It could be due to anxiety, blood pressure stabilized on low side as her usual Continue hydroxyzine 10 mg h.s. Code status: Full code DVT prophylaxis: Heparin subQ, SCD GI prophylaxis: IV pantoprazole 40 mg b.i.d. Pain management: [place] 5 mg/10 mg p.r.n. Diet/nutrition: Regular diet Prognosis: Guarded Disposition: Continue medical management, orthostatic vitals, follow up urine osmolality and urine sodium, monitor blood pressure, PT eval and DC plan tomorrow Resident attestation: Patient was seen, examined and discussed with attending MD, Dr. Anastasiya ROWE MD Internal Medicine Resident, PGY3 [facility] Date of Service: Jan 13, 2025 Billing Provider: EMELY ROBERTS MD Common Visit Codes: [id number] INP/OBS CARE(HIGH) DEISI ROWE, RES Jan 13, 2025 16:08 EMELY ROBERTS MD Jan 18, 2025 07:33
[2025-01-13 16:22] LABS: UA EOSINOPHILS NO EOS /HPF
[2025-01-13] MEDS ORDERED: pantoprazole 40mg Tablet.DR PO SCH (20:00)
[2025-01-14] MEDS: normal saline 500ml IV soln 500 ML IV ONE (03:36)
[2025-01-14 05:00] VITALS: BP 121/60; PULSE 63; RESP 16; TEMP 98.1; O2SAT 98
[2025-01-14 06:07] LABS: MEAN PLATELET VOLUME 7.0 FL (7.4-10.4); RED CELL DISTRIBUTION WIDTH 14.8 % (11.5-14.5)
[2025-01-14 06:33] LABS: CREATININE 0.62 MG/DL (0.40-0.90); TOTAL CARBON DIOXIDE 25.7 MMOL/L (24-32); eCRCL 59 ML/MIN; eGFR > 90 ML/MIN
[2025-01-14 07:08] VITALS: BP_SYST 120; BP_SYST 129; BP_SYST 145; BP_DIAS 67; BP_DIAS 73; BP_DIAS 76; PULSE 64; PULSE 70; PULSE 73
[2025-01-14 08:00] VITALS: RESP 16; O2SAT 98
[2025-01-14 10:00] VITALS: BP 146/66; PULSE 70; RESP 18; TEMP 98.1; O2SAT 99
[2025-01-14] MEDS ORDERED: PANT40TA54 PO (11:27)
[2025-01-14 12:00] VITALS: RESP 16
--- NOTE | 2025-01-14 17:53 | DISCHARGE SUMMARY-Residence ---
Discharge Summary Providers to Resident Creating Document: DEMETRIO GARSIATOMMIE ~ Discharge Summary Admission Diagnosis: Hyponatremia Hospital Course DATE OF ADMISSION: 01/12/25 DATE OF DISCHARGE: 01/14/25 Discharge Diagnosis\Comment: Euvolemic hypoosmolar Hyponatremia Orthostatic hypotension Panic attacks Anxiety Dyslipidemia Hypertension Gastritis Operations\Procedures: none Consultants: none Complications: none Condition on DC: Stable New Medications: Pantoprazole Sodium (Pantoprazole Sodium) 40 Mg Tablet.dr 40 MG PO DAILY for 30 Days, #30 TAB.SR Continued Medications: Alprazolam (Xanax) 0.25 Mg Tablet 1 TAB PO Q12H PRN PRN for anxiety for 7 Days, #14 TAB 0 Refills Hydroxyzine Hcl* (Atarax*) 25 Mg Tablet 2 TAB PO PRN PRN for for anxiety/agitation, TAB Discharge Summary: HPI as per admitting physician: 79-year-old female with history of anxiety and panic attacks came to the ED due to dizziness on the morning of day of admission. She came to the ED the previous night for panic attack and was given Ativan, hydroxyzine and tramadol due to associated abdominal pain. She has been having panic attacks for the past 3 months and has a therapist who prescribed her Xanax 0.25 mg at home which has not been helping her. She has propranolol, Ativan, hydroxyzine at home which she uses p.r.n. for anxiety and states that she tries to cut back down on the meds. She will also reports having intermittent epigastric abdominal pain for the past 3 months with no radiation, especially when she eats which used to subside with Xanax but not anymore and thus has lost weight around 19 lb in the past 3 months. She denies use of [id number] pain meds and does not drink alcohol. She states that she has been taking Pepcid for the past 1-1/2 week as per recommendation of her PCP but it has not been helping her. She went to [facility] 1-1/2 week ago for evaluation of abdominal pain where CT scan and ultrasound were performed with no findings. She deenies any other medical complaints. Hospital course: Sodium was 128 on admission, she has chronic history of hyponatremia and does not show any neurological signs or symptoms. Her sodium up trended to [address] showed no intracranial abnormality. Serum Osmolality was mildly low 270, Urine osmolality was normal - 460 and urine sodium was elevated 109, TSH is normal. Sodium uptrended gradually the following days, Fall precautions were in place. Urine drug screen was negative. Orthostatic vitals were positive. She was given 500 mL NS bolus and started on NS at 75 mL/hour. She was requested to wear compression stockings but patient denied stating that she is uncomfortable with them. Lipase was normal. She was started on IV pantoprazole 40 mg and switched to pantoprazole 40 mg p.o. b.i.d. the next day. She was started on Ativan 1 mg q.6h p.r.n. for anxiety and hydroxyzine 10 mg h.s. LDL is high 142 she was explained the risks of possible ACS in the future and benefits of statin therapy, she understands but denies statins as she does not want to take too many medications. She was discharged home with her home medications and recommended to discuss with PCP about the usage of anti-anxiety medications and statins. Patient did not experience further complications throughout the entire hospital stay. Patient was seen and examined on the day of discharge. All labs, diagnostic workups, discharge plan discussed with the patient in detail during visit before discharge. All questions and concerns answered to the best of my professional knowledge. Imaging: Head CT-01/12/25 No acute intracranial abnormality. Vital Signs Date Time Temp Pulse Resp B/P (MAP) Pulse Ox O2 Delivery O2 Flow Rate FiO2 01/14/25 12:00 16 01/14/25 10:00 98.1 70 146/66 (92) 99 Room Air Laboratory Tests Test 01/13/25 06:32 01/13/25 15:03 01/14/25 04:49 White Blood Count 4.3 X10'3 4.6 X10'3 Red Blood Count 3.54 X10'6 3.42 X10'6 Hemoglobin 11.1 g/dl 10.7 g/dl Hematocrit 31.7 % 31.1 % Mean Corpuscular Volume 89.4 FL 90.9 FL Mean Corpuscular Hemoglobin 31.2 PG 31.4 PG Mean Corpuscular Hemoglobin Concent 35.0 g/dL 34.6 g/dL Red Cell Distribution Width 14.3 % 14.8 % Platelet Count 197 X10'3 172 X10'3 Mean Platelet Volume 6.4 FL 7.0 FL Neutrophils (%) (Auto) 61.6 % 57.3 % Lymphocytes (%) (Auto) 21.0 % 23.4 % Monocytes (%) (Auto) 9.6 % 11.0 % Eosinophils (%) (Auto) 7.1 % 6.9 % Basophils (%) (Auto) 0.7 % 1.4 % Neutrophils # (Auto) 2.6 X10'3 2.6 X10'3 Lymphocytes # (Auto) 0.9 X10'3 1.1 X10'3 Monocytes # (Auto) 0.4 X10'3 0.5 X10'3 Eosinophils # (Auto) 0.3 X10'3 0.3 X10'3 Basophils # (Auto) 0.0 X10'3 0.1 X10'3 CBC Comment Sodium Level 132 MMOL/L 134 MMOL/L Potassium Level 4.1 MMOL/L 4.1 MMOL/L Chloride Level 102 MMOL/L 104 MMOL/L Carbon Dioxide Level 23.6 MMOL/L 25.7 MMOL/L Anion Gap 6 4 Blood Urea Nitrogen 10 MG/DL 11 MG/DL Creatinine 0.63 MG/DL 0.62 MG/DL Estimated GFR/1.73 m2 > 90 ML/MIN > 90 ML/MIN BUN/Creatinine Ratio 15.9 17.7 Glucose Level 87 MG/DL 83 MG/DL Calcium Level 8.1 MG/DL 8.0 MG/DL Magnesium Level 1.8 MG/DL 1.9 MG/DL Albumin 3.2 G/DL 2.9 G/DL Triglycerides Level 60 MG/DL Cholesterol Level 199 MG/DL LDL Cholesterol 142 MG/DL HDL Cholesterol 52 MG/DL Cholesterol/HDL Ratio 3.8 Chemistry Comments Urine Specimen Description Non-specified Urine Color Yellow Urine Clarity Clear Urine pH 6.5 Urine Specific [place] 1.010 Urine Protein Negative mg/dl Urine Glucose (UA) Negative mg/dl Urine Ketones Negative mg/dl Urine Occult Blood Trace-intact Urine Nitrite Negative Urine Bilirubin Negative Urine Urobilinogen 0.2 E.U/dL Urine Leukocyte Esterase Negative Urine RBC 0-2 /HPF Urine WBC None seen /HPF Urine Squamous Epithelial Cells Few /LPF Urine Bacteria None seen /HPF Urine Mucus None seen /LPF Urine Culture Indicated Not ind Volume Urine Centrifuged 10 ml Urine Eosinophils No eos /HPF Urine Osmolality 460 MOSM/K Urine Random Creatinine 61.0 MG/DL Urine Random Sodium 109 MEQ/L Urine Comment Urine Opiates Screen Negative Urine Methadone Screen Negative Urine Fentanyl Screen Negative Urine Barbiturates Screen Negative Urine Phencyclidine Screen Negative Urine Amphetamines Screen Negative Urine Benzodiazepines Screen Negative Urine Cocaine Screen Negative Urine Cannabinoids Screen Negative Drug Screen Comment Examination on day of discharge: Awake , alert, and oriented x4, resting comfortably in the bed, in no acute distress HEENT: Atraumatic, normocephalic, EOMI, anicteric sclera ; pink conjunctiva Neck: Trachea midline. Supple, full range of motion, no JVD Cardiac: Regular rhythm, regular rate with no murmurs all over the precordium. Respiratory: Equal breath sounds bilaterally, no tachypnea, no wheezing ,rub or rales, Chest wall is symmetric and without deformity. Gastrointestinal: Abdomen symmetric, non-distended, soft, non-tender, normal bowel sounds x4 quadrant, normoactive, no hepatosplenomegaly Musculoskeletal: No pedal edema, no cyanosis Neurological: Speech is clear, alert, and oriented x 4. No motor or sensory deficit, deep tendon reflexes normal, cerebellar intact. Cranial nerves II-XII intact. Skin: Warm and dry Advice on discharge: Follow up with PCP in 1-2 weeks Follow up with therapist regarding anxiety and panic attacks Recommend to cut down on anti-anxiety medications Discuss with PCP regarding initiation of statin for high LDL Recommend low-cholesterol diet Monitor sodium level in 1-2 weeks The patient was seen and evaluated on day of discharge. Time spent on discharge 35 minutes. Demetrio Garsia MD Internal Medicine resident, PGY-1 *Problems/Diagnosis: (1) Hyponatremia (2) Orthostatic hypotension (3) Panic attacks (4) Anxiety (5) Dyslipidemia (6) Hypertension (7) Gastritis Total Time Spent on D/C: > 30 Minutes Date of Service: Jan 14, 2025 Billing Provider: EMELY ROBERTS MD Common Visit Codes: 47182-PTD/OBS DISCH DAY >30min DEMETRIO GARSIA, RES Jan 14, 2025 17:52 EMELY ROBERTS MD Jan 18, 2025 07:33
== END 2025-01-14 13:20 | disposition home health service (06) | DRG 641 ==
LOC: ER 07:51 → ED HOLD 12:28 → PCU 3S 19:20 → ORTHO 4S 01-13 15:51
PROVIDERS: ADMIT Family Medicine; ATTEND Family Medicine
DX: E87.1 Hypo-osmolality and hyponatremia (principal); E78.5 Hyperlipidemia, unspecified; I10 Essential (primary) hypertension; I95.1 Orthostatic hypotension; K29.60 Other gastritis without bleeding; F41.9 Anxiety disorder, unspecified
CPT/HCPCS: 36415; 70450; 80048; 80053; 80061; 80305; 81001; 82570; 83036; 83605; 83690; 83735; 83880; 83930; 83935; 84100; 84300; 84443; 85025; 85610; 85730; 87081; 87207; 97161; 97530; 99285; G0378; J2470; J7030; J7040